=== PATIENT | male | born 2000 | race Caucasian/White ===

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

== ENCOUNTER → 2021-07-29 14:17 | Outpatient (BNVA) | payer MEDICAID, SELFPAY | PROVIDERS: Family Provider Specialist; PCP Specialist; Visit Provider Specialist | DX: F98.8 Other specified behavioral and emotional disorders with onset usually occurring in childhood and adolescence (principal); G80.1 Spastic diplegic cerebral palsy | CPT/HCPCS: 99213 ==

== ENCOUNTER → 2021-12-15 15:41 | Outpatient (BNVA) | payer MEDICAID, SELFPAY | PROVIDERS: Family Provider Specialist; PCP Social Worker Clinical; Visit Provider Specialist | DX: F98.8 Other specified behavioral and emotional disorders with onset usually occurring in childhood and adolescence (principal); G80.1 Spastic diplegic cerebral palsy; Z86.16 Personal history of COVID-19 | CPT/HCPCS: 99213 ==